=== PATIENT | male | born 1935 ===

== ENCOUNTER → 2017-08-24 | Outpatient (CLI) | payer MEDICARE, OTHER ==
[~2017-08-24] VITALS: Ht 165.1 cm; Wt 93.0 kg
[~2017-08-24] MED LIST: ASPI81 PO; ATOR40TA28 PO; CARV12 PO; METF500T6 PO; MULT1TAB70 PO; TELM40 PO
[2017-08-24 10:38] VITALS: BP 112/58
== END | disposition home or self-care (01) ==
LOC: SRCNTR 10:14
PROVIDERS: ATTEND Internal Medicine Cardiovascular Disease
DX: I11.0 Hypertensive heart disease with heart failure (principal); I50.20 Unspecified systolic (congestive) heart failure; E11.51 Type 2 diabetes mellitus with diabetic peripheral angiopathy without gangrene; E78.5 Hyperlipidemia, unspecified; I25.5 Ischemic cardiomyopathy; I48.92 Unspecified atrial flutter; Z79.82 Long term (current) use of aspirin; Z89.512 Acquired absence of left leg below knee
CPT/HCPCS: G0463

== ENCOUNTER → 2017-09-07 | Outpatient (CLI) | payer MEDICARE, OTHER ==
[~2017-09-07] VITALS: Ht 165.1 cm; Wt 96.0 kg
[2017-09-07 11:43] VITALS: BP 122/57
== END | disposition home or self-care (01) ==
LOC: SRCNTR 10:57
PROVIDERS: ATTEND Internal Medicine Cardiovascular Disease
DX: I11.0 Hypertensive heart disease with heart failure (principal); I50.9 Heart failure, unspecified; E11.51 Type 2 diabetes mellitus with diabetic peripheral angiopathy without gangrene; E78.5 Hyperlipidemia, unspecified; I25.10 Atherosclerotic heart disease of native coronary artery without angina pectoris; I25.5 Ischemic cardiomyopathy; I34.0 Nonrheumatic mitral (valve) insufficiency; I49.9 Cardiac arrhythmia, unspecified; Z79.82 Long term (current) use of aspirin; Z89.512 Acquired absence of left leg below knee
CPT/HCPCS: G0463

== ENCOUNTER → 2017-11-04 | Outpatient (CLI) | payer MEDICARE, OTHER ==
[~2017-11-04] VITALS: Ht 165.1 cm; Wt 94.0 kg
[2017-11-04 10:24] VITALS: BP 111/47
== END | disposition home or self-care (01) ==
LOC: SRCNTR 09:49
PROVIDERS: ATTEND Internal Medicine Cardiovascular Disease
DX: I11.0 Hypertensive heart disease with heart failure (principal); I50.9 Heart failure, unspecified; I25.10 Atherosclerotic heart disease of native coronary artery without angina pectoris; I42.9 Cardiomyopathy, unspecified; I49.9 Cardiac arrhythmia, unspecified; E11.9 Type 2 diabetes mellitus without complications; E78.5 Hyperlipidemia, unspecified; I34.0 Nonrheumatic mitral (valve) insufficiency; I25.5 Ischemic cardiomyopathy
CPT/HCPCS: G0463

== ENCOUNTER → 2017-11-18 | Outpatient (CLI) | payer MEDICARE, OTHER ==
[~2017-11-18] VITALS: Ht 165.1 cm; Wt 93.0 kg
[2017-11-18 11:25] VITALS: BP 108/47
== END | disposition home or self-care (01) ==
LOC: SRCNTR 11:24
PROVIDERS: ATTEND Internal Medicine Cardiovascular Disease
DX: I11.0 Hypertensive heart disease with heart failure (principal); I50.9 Heart failure, unspecified; I25.10 Atherosclerotic heart disease of native coronary artery without angina pectoris; I73.9 Peripheral vascular disease, unspecified; E11.9 Type 2 diabetes mellitus without complications; J44.9 Chronic obstructive pulmonary disease, unspecified; E78.5 Hyperlipidemia, unspecified
CPT/HCPCS: G0463

== ENCOUNTER → 2018-01-17 | Outpatient (CLI) | payer MEDICARE, OTHER ==
[~2018-01-17] VITALS: Ht 165.1 cm; Wt 93.0 kg
[~2018-01-17] MED LIST changes: +METF-960 PO; -METF500T6 PO
[2018-01-17 15:18] VITALS: BP 133/51
== END | disposition home or self-care (01) ==
LOC: SRCNTR 14:43
PROVIDERS: ATTEND Internal Medicine Cardiovascular Disease
DX: I11.0 Hypertensive heart disease with heart failure (principal); I50.9 Heart failure, unspecified; I25.5 Ischemic cardiomyopathy; I49.9 Cardiac arrhythmia, unspecified; E11.51 Type 2 diabetes mellitus with diabetic peripheral angiopathy without gangrene; E78.5 Hyperlipidemia, unspecified; Z89.512 Acquired absence of left leg below knee
CPT/HCPCS: G0463

== ENCOUNTER → 2018-06-13 | Outpatient (CLI) | payer MEDICARE, OTHER ==
[~2018-06-13] VITALS: Ht 165.1 cm; Wt 98.0 kg
[2018-06-13 14:30] VITALS: BP 124/60
== END | disposition home or self-care (01) ==
LOC: SRCNTR 14:27
PROVIDERS: ATTEND Internal Medicine Cardiovascular Disease
DX: E78.5 Hyperlipidemia, unspecified (principal); I73.9 Peripheral vascular disease, unspecified; E11.9 Type 2 diabetes mellitus without complications; J44.9 Chronic obstructive pulmonary disease, unspecified; I42.9 Cardiomyopathy, unspecified; I11.0 Hypertensive heart disease with heart failure; I50.9 Heart failure, unspecified; I25.10 Atherosclerotic heart disease of native coronary artery without angina pectoris
CPT/HCPCS: G0463

== ENCOUNTER → 2018-07-20 | Outpatient (CLI) | payer MEDICARE, OTHER ==
[~2018-07-20] VITALS: Ht 165.1 cm; Wt 96.0 kg
[~2018-07-20] MED LIST changes: +FURO20 PO; +IPRAHFA IH; +IRON18TA PO
[2018-07-20 14:48] VITALS: BP 114/68
== END | disposition home or self-care (01) ==
LOC: SRCNTR 14:28
PROVIDERS: ATTEND Internal Medicine Cardiovascular Disease
DX: E78.5 Hyperlipidemia, unspecified (principal); I11.0 Hypertensive heart disease with heart failure; I50.9 Heart failure, unspecified; E11.9 Type 2 diabetes mellitus without complications; I73.9 Peripheral vascular disease, unspecified; I25.10 Atherosclerotic heart disease of native coronary artery without angina pectoris
CPT/HCPCS: G0463